=== PATIENT | female | born 1945 | race Caucasian/White ===

== ENCOUNTER 2018-06-06 21:43 | Emergency (ER) | payer MEDICARE, OTHER ==
--- NOTE | 2018-06-06 21:53 | UC ---
UC General HPI - HPI Summary HPI Summary: This patient is a 73 year old F presenting to [facility] with a chief complaint of foreign body stuck in her L ear since [employer]. The patient reports that part of her hearing aid was broken off accidentally in her ear while she was trying to take it out. The patient rates the pain 0/10 in severity. Symptoms aggravated by nothing. Symptoms alleviated by nothing. Patient denies any pain. - History of Current Complaint Stated Complaint: hearing AID STUCK IN EAR Hx Obtained From: Patient Onset/Duration: Sudden Onset, Lasting Hours, Still Present Current Severity: None Aggravating: nothing Alleviating: nothing - Allergy/Home Medications Allergies/Adverse Reactions: Allergies Allergy/AdvReac Type Severity Reaction Status Date / Time MS Bee Venom [Bee Venom] Allergy Severe Anaphylatic Verified 05/03/14 09:39 Shock bee venom protein (honey bee) Allergy Anaphylatic Verified 06/06/18 21:52 Shock calcitonin Allergy Anaphylatic Verified 06/06/18 21:52 Shock codeine Allergy Dizziness Verified 06/06/18 21:52 erythromycin base Allergy Hallucinati Verified 06/06/18 21:52 ons gluten Allergy GI Upset Verified 06/06/18 21:52 Penicillins Allergy Anaphylatic Verified 06/06/18 21:52 Shock Home Medications: Home Medications Desloratidine (NF) [Clarinex (NF)] 5 mg PO DAILY 06/06/18 [History Confirmed ] Estradiol (NF) 0.5 mg PO DAILY 06/06/18 [History Confirmed 06/06/18] Potassium Chloride [Klor-Con] 40 meq PO DAILY 06/06/18 [History Confirmed ] PMH/Surg Hx/FS Hx/Imm Hx Endocrine History: Hypothyroidism Cardiovascular History: Other - SVT Other Cardiovascular History: SVT - Surgical History Surgical History: Yes Surgery Procedure, Year, and Place: Tonsilectomy. bladder repair. sling and mesh bladder - Family History Known Family History: Positive: Other Family History: osteoporosis, breast CA - Social History Alcohol Use: Rare Alcohol Amount: 1 GLASS ONCE A WEEK Substance Use Type: None Smoking Status (MU): Never Smoked Tobacco Have You Smoked in the Last Year: No Review of Systems Constitutional: Other - denies fever ENT: Other - hearing aid stuck in L ear; denies any pain All Other Systems Reviewed And Are Negative: Yes Physical Exam - Summary Physical Exam Summary: VITAL SIGNS: Reviewed. GENERAL: Patient is a well-developed and nourished FEMALE who is lying comfortable in the stretcher. Patient is not in any acute respiratory distress. HEAD AND FACE: Normocephalic EYES: PERRLA, EOMI x 2. EARS: Foreign body in L ear. Hearing loss. MOUTH: Oropharynx within normal limits. NECK: Supple, trachea is midline, no adenopathy, no JVD, no carotid bruit. CHEST: Symmetric, no tenderness at palpation LUNGS: Clear to auscultation bilaterally. No wheezing or crackles. CVS: Irregular rate and rhythm, S1 and S2 present, no murmurs or gallops appreciated. ABDOMEN: Soft, non-tender. Bowel sounds are normal. No abdominal abnormal pulsations. EXTREMITIES: Full ROM in all major joints, no edema, no cyanosis or clubbing. NEURO: Alert and oriented x 3. No acute neurological deficits. Speech is normal and follows commands. SKIN: Dry and warm Triage Information Reviewed: Yes Vital Signs: Initial Vitals Temp Pulse Resp BP Pulse Ox 97.4 F 64 18 138/81 97 06/06/18 21:56 06/06/18 21:56 06/06/18 21:56 06/06/18 21:56 06/06/18 21:56 Vital Signs Reviewed: Yes Course/Dx - Course Course Of Treatment: Foreign body was removed from the left ear. No complications. Patient will follow-up with primary care physician. - Differential Dx - Multi-Symptom Provider Diagnoses: foreign body removal from L ear Discharge - Sign-Out/Discharge Documenting (check all that apply): Patient Departure All imaging exams completed and their final reports reviewed: No Studies - Discharge Plan Condition: Stable Disposition: HOME Patient Education Materials: Ear Foreign Body (ED) Referrals: Manisha Floyd MD [Primary Care Provider] - Additional Instructions: Return to the or go to the emergency department if symptoms worsen Follow-up with primary care physician in next 2-3 days - Billing Disposition and Condition Condition: STABLE Disposition: Home - Attestation Statements Document Initiated by Scribe: Yes Documenting Scribe: Jean Londono Provider For Whom Scribe is Documenting (Include Credential): Kael Noel MD Scribe Attestation: Jean Bautista, scribed for Kael Noel MD on 06/06/18 at 2202. Scribe Documentation Reviewed: Yes Provider Attestation: The documentation as recorded by the scribe, Jean Londono accurately reflects the service I personally performed and the decisions made by me, Kael Noel MD
[2018-06-06 22:00] VITALS: BP 138/81
== END 2018-06-06 22:03 | disposition home or self-care (01) ==
LOC: UCEAST 21:43
DX: T16.2XXA Foreign body in left ear, initial encounter (principal); X58.XXXA Exposure to other specified factors, initial encounter; Y92.9 Unspecified place or not applicable; Z88.5 Allergy status to narcotic agent; Z88.0 Allergy status to penicillin; Z88.1 Allergy status to other antibiotic agents; Z91.030 Bee allergy status
CPT/HCPCS: 69200; 99211; 99212; G0463

== ENCOUNTER 2018-12-04 10:24 | Emergency (ER) | payer MEDICARE, OTHER ==
[2018-12-04 11:24] VITALS: BP 134/79
--- NOTE | 2018-12-04 11:27 | UC ---
Complaint Female HPI - HPI Summary HPI Summary: 73 yo female presents with urinary burning, frequency, and bladder pressure since early this morning. She tells me that she has had many UTIs in the past and this feels similar. Denies abdominal pain, n/v, or fever. - History Of Current Complaint Chief Complaint: UCGU Stated Complaint: URINARY COMPLAINT Time Seen by Provider: 12/04/18 11:26 Hx Obtained From: Patient Onset/Duration: Sudden Onset Timing: Constant Severity Initially: Moderate Severity Currently: Moderate Pain Intensity: 5 Pain Scale Used: 0-10 Numeric - Allergies/Home Medications Allergies/Adverse Reactions: Allergies Allergy/AdvReac Type Severity Reaction Status Date / Time MS Bee Venom [Bee Venom] Allergy Severe Anaphylatic Verified 12/04/18 11:24 Shock bee venom protein (honey bee) Allergy Anaphylatic Verified 12/04/18 11:24 Shock calcitonin Allergy Anaphylatic Verified 12/04/18 11:24 Shock codeine Allergy Dizziness Verified 12/04/18 11:24 erythromycin base Allergy Hallucinati Verified 12/04/18 11:24 ons gluten Allergy GI Upset Verified 12/04/18 11:24 Penicillins Allergy Anaphylatic Verified 12/04/18 11:24 Shock PMH/Surg Hx/FS Hx/Imm Hx - Additional Past Medical History Additional PMH: Seasonal Allergies Endocrine History: Hypothyroidism Cardiovascular History: Cardiac Disease, Hypertension - Surgical History Surgical History: Yes Surgery Procedure, Year, and Place: Tonsilectomy. bladder repair x5. sling and mesh bladder. hysterectomy - Family History Known Family History: Positive: Other Negative: Cardiac Disease, Hypertension, Diabetes Family History: osteoporosis, breast CA - Social History Occupation: Retired Lives: With Family Alcohol Use: Rare Alcohol Amount: 1 GLASS ONCE A WEEK Substance Use Type: None Smoking Status (MU): Never Smoked Tobacco Have You Smoked in the Last Year: No Review of Systems All Other Systems Reviewed And Are Negative: Yes Constitutional: Positive: Negative Skin: Positive: Negative Respiratory: Positive: Negative Cardiovascular: Positive: Negative Genitourinary: Positive: Dysuria Neurological: Positive: Negative Psychological: Positive: Negative Physical Exam - Summary Physical Exam Summary: GENERAL: NAD. WDWN. No pain distress. SKIN: No rashes, sores, lesions, or open wounds. NECK: Supple. Nontender. No lymphadenopathy. CHEST: CTAB. No r/r/w. No accessory muscle use. Breathing comfortably and in no distress. CV: RRR. Without m/r/g. Pulses intact. Cap refill <2seconds ABDOMEN: Soft. NTTP. No distention or guarding. No CVA tenderness. Bowel sounds present NEURO: Alert. PSYCH: Age appropriate behavior. Triage Information Reviewed: Yes Vital Signs: Initial Vital Signs Temp 98.8 F 12/04/18 11:21 Pulse 74 12/04/18 11:21 Resp 16 12/04/18 11:21 BP 134/79 12/04/18 11:21 Pulse Ox 99 12/04/18 11:21 Laboratory Tests 12/04/18 11:38 POC Urine Color Light yellow POC Urine Clarity Clear POC Urine pH 7.0 POC Ur Specif [place] 1.010 POC Urine Protein Trace A POC Ur Glucose (UA) Negative POC Urine Ketones Negative POC Urine Blood 3+ A POC Urine Nitrite Negative POC Urine Bilirubin Negative POC Urine Urobilinogen 0.2 POC U Leukocyte Esteras 1+ A Vital Signs Reviewed: Yes Complaint Female Dx - Course Course Of Treatment: UA with signs of infection. Will treat with macrobid and send her urine for culture - Differential Dx/Diagnosis Provider Diagnosis: UTI (urinary tract infection) Discharge - Sign-Out/Discharge Documenting (check all that apply): Patient Departure All imaging exams completed and their final reports reviewed: No Studies - Discharge Plan Condition: Stable Disposition: HOME Prescriptions: Nitrofurantoin Monohyd/M-Cryst [Macrobid 100 mg Capsule] 100 mg PO BID #10 cap Phenazopyridine 200 mg (NF) [Pyridium 200 MG tab *] 200 mg PO TID #6 tab Patient Education Materials: Urinary Tract Infection in Women (DC) Referrals: Manisha Floyd MD [Primary Care Provider] - Additional Instructions: If you develop a fever, shortness of breath, chest pain, new or worsening symptoms - please call your PCP or go to the ED. - Billing Disposition and Condition Condition: STABLE Disposition: Home
== END 2018-12-04 11:57 | disposition home or self-care (01) ==
LOC: UCEAST 10:24
DX: N39.0 Urinary tract infection, site not specified (principal); E03.9 Hypothyroidism, unspecified; I11.9 Hypertensive heart disease without heart failure; Z87.440 Personal history of urinary (tract) infections; Z88.5 Allergy status to narcotic agent; Z88.0 Allergy status to penicillin; Z88.1 Allergy status to other antibiotic agents; Z91.030 Bee allergy status
CPT/HCPCS: 81003; 87086; 99212; G0463

== ENCOUNTER 2019-01-07 10:47 | Emergency (ER) | payer MEDICARE, OTHER ==
[2019-01-07 11:22] LABS: ABS Eosinophils 0.2 10^3/ul (0-0.6); ABS Monocytes 0.5 10^3/ul (0-0.8); ABS Neutrophils 3.3 10^3/ul (1.5-7.7); Eosinophil % 3.1 %; Hematocrit 46 % (35-47); Hemoglobin 15.5 g/dL (12.0-16.0); Lymphocyte % 20.8 %; Mean Corpuscular HGB Conc 34 g/dL (31-36); Mean Corpuscular Hemoglobin 33 pg (27-31); Mean Corpuscular Volume 97 fL (80-97); Mean Platelet Volume 9.1 fL (7.4-10.4); Platelet Count 237 10^3/uL (150-450); Red Blood Count 4.72 10^6 /uL (3.70-4.87); Red Cell Distribution Width 13 % (10.5-15)
[2019-01-07 11:39] LABS: Albumin 4.4 g/dL (3.2-5.2); Albumin/Globulin Ratio 1.4 (1-3); BUN/Creatinine Ratio 24.6 (8-20); Calcium 9.8 mg/dL (8.6-10.3); EGFR African American 107.8 (>60); EGFR Non-African American 89.1 (>60); Globulin 3.2 g/dL (2-4); Potassium 4.9 mmol/L (3.5-5.0); Total Bilirubin 1.3 mg/dL (0.2-1.0); Total Protein 7.6 g/dL (6.4-8.9)
--- NOTE | 2019-01-07 12:01 | ED ---
HPI Chest Pain - HPI Summary HPI Summary: The patient is a 73 y/o F presenting to [facility] accompanied by with a chief complaint of sudden onset dull aching left anterior chest pain starting yesterday at 0800. She reports that she was recently switched from the bran- name Cardizem to the generic form, and now she has been experiencing CP and heart palpitations. Throughout the night, the pain has become more constant. She did not take the medication this morning. She denies nausea, vomiting, SOB, diaphoresis, and edema. No hx of MT but has hx of PSVTs, which is why she is on the Cardizem. - History of Current Complaint Chief Complaint: EDChestPainROMI Time Seen by Provider: 01/07/19 11:36 Hx Obtained From: Patient Pain Intensity: 2 - Allergy/Home Medications Allergies/Adverse Reactions: Allergies Allergy/AdvReac Type Severity Reaction Status Date / Time bee venom protein (honey bee) Allergy Anaphylatic Verified 01/07/19 10:53 Shock calcitonin Allergy Anaphylatic Verified 01/07/19 10:53 Shock codeine Allergy Dizziness Verified 01/07/19 10:53 erythromycin base Allergy Hallucinati Verified 01/07/19 10:53 ons gluten Allergy GI Upset Verified 01/07/19 10:53 Penicillins Allergy Anaphylatic Verified 01/07/19 10:53 Shock Home Medications: Home Medications Atorvastatin* [Lipitor*] 5 mg PO DAILY 01/07/19 [History Confirmed 01/07/19] EPINEPHrine [Epipen 2-Esdras] 0.3 mg IM DAILY PRN 01/07/19 [History Confirmed 01/07] Multivitamins/Minerals TAB* [Theragran/minerals TAB*] 1 tab PO DAILY 01/07/19 [ History Confirmed 01/07/19] PMH/Surg Hx/FS Hx/Imm Hx Endocrine/Hematology History: Reports: Hx Thyroid Disease Denies: Hx Diabetes Cardiovascular History: Denies: Hx Hypertension Respiratory History: Denies: Hx Asthma, Hx Chronic Obstructive Pulmonary Disease (COPD) GI History: Denies: Hx Ulcer Musculoskeletal History: Reports: Hx Osteoporosis Denies: Hx Rheumatoid Arthritis - Cancer History Hx Chemotherapy: No Hx Radiation Therapy: No - Surgical History Surgery Procedure, Year, and Place: Tonsilectomy. bladder repair x5. sling and mesh bladder. hysterectomy Infectious Disease History: No Infectious Disease History: Denies: Hx Hepatitis, Hx Human Immunodeficiency Virus (HIV), Traveled Outside the [place] in Last 30 Days - Family History Known Family History: Positive: Other Negative: Cardiac Disease, Hypertension, Diabetes Family History: osteoporosis, breast CA - Social History Alcohol Use: Rare Alcohol Amount: 1 GLASS ONCE A WEEK Hx Substance Use: No Substance Use Type: Reports: None Hx Tobacco Use: No Smoking Status (MU): Never Smoked Tobacco Do You Chew or Dip Tobacco: No Have You Chewed or Dipped Tobacco in the LAST YEAR: No Have You Smoked in the Last Year: No Review of Systems Negative: Skin Diaphoresis Positive: Chest Pain - left anterior dull ache Negative: Shortness Of Breath Negative: Vomiting, Nausea Negative: Edema All Other Systems Reviewed And Are Negative: Yes Physical Exam - Summary Physical Exam Summary: VITAL SIGNS: Reviewed. GENERAL: Patient is a well-developed and nourished female who is lying comfortable in the stretcher. Patient is not in any acute respiratory distress. HEAD AND FACE: No signs of trauma. No ecchymosis, hematomas or skull depressions. No sinus tenderness. EYES: PERRLA, EOMI x 2, No injected conjunctiva, no nystagmus. EARS: Hearing grossly intact. Ear canals and tympanic membranes are within normal limits. MOUTH: Oropharynx within normal limits. NECK: Supple, trachea is midline, no adenopathy, no JVD, no carotid bruit, no c- spine tenderness, neck with full ROM. CHEST: Symmetric, no tenderness at palpation LUNGS: Clear to auscultation bilaterally. No wheezing or crackles. CVS: Regular rate and rhythm, S1 and S2 present, no murmurs or gallops appreciated. ABDOMEN: Soft, non-tender. No signs of distention. No rebound no guarding, and no masses palpated. Bowel sounds are normal. EXTREMITIES: FROM in all major joints, no edema, no cyanosis or clubbing. NEURO: Alert and oriented x 3. No acute neurological deficits. Speech is normal and follows commands. SKIN: Dry and warm. Triage Information Reviewed: Yes Vital Signs On Initial Exam: Initial Vitals Pulse Resp BP Pulse Ox 94 18 144/96 97 01/07/19 10:18 01/07/19 10:18 01/07/19 10:18 01/07/19 10:18 Vital Signs Reviewed: Yes Diagnostics - Vital Signs Vital Signs Temp Pulse Resp BP Pulse Ox 05/22/19 11:45 95 01/07/19 11:19 93 27 97 01/07/19 10:50 97.9 F 99 17 150/97 97 01/07/19 10:18 94 18 144/96 97 - Laboratory Lab Results: Lab Results 01/07/19 01/07/19 01/07/19 Range/Units 11:10 11:10 11:10 WBC 5.0 (3.5-10.8) 10^3/uL RBC 4.72 (3.70-4.87) 10^6 /uL Hgb 15.5 (12.0-16.0) g/dL Hct 46 (35-47) % MCV 97 (80-97) fL MCH 33 H (27-31) pg MCHC 34 (31-36) g/dL RDW 13 (10.5-15) % Plt Count 237 (150-450) 10^3/uL MPV 9.1 (7.4-10.4) fL Neut % (Auto) 65.2 % Lymph % (Auto) 20.8 % [place] % (Auto) 10.0 % Eos % (Auto) 3.1 % Baso % (Auto) 0.9 % Absolute Neuts (auto) 3.3 (1.5-7.7) 10^3/ul Absolute Lymphs (auto) 1.0 (1.0-4.8) 10^3/ul Absolute Monos (auto) 0.5 (0-0.8) 10^3/ul Absolute Eos (auto) 0.2 (0-0.6) 10^3/ul Absolute Basos (auto) 0.0 (0-0.2) 10^3/ul Absolute Nucleated RBC 0.0 10^3/ul Nucleated RBC % 0.0 Sodium 139 (135-145) mmol/L Potassium 4.9 (3.5-5.0) mmol/L Chloride 107 (101-111) mmol/L Carbon Dioxide 27 (22-32) mmol/L Anion Gap 5 (2-11) mmol/L BUN 16 (6-24) mg/dL Creatinine 0.65 (0.51-0.95) mg/dL Est GFR ( Amer) 107.8 (>60) Est GFR (Non-Af Amer) 89.1 (>60) BUN/Creatinine Ratio 24.6 H (8-20) Glucose 108 H (70-100) mg/dL Lactic Acid 1.2 (0.5-2.0) mmol/L Calcium 9.8 (8.6-10.3) mg/dL Total Bilirubin 1.30 H (0.2-1.0) mg/dL AST 25 (13-39) U/L ALT 21 (7-52) U/L Alkaline Phosphatase 82 (34-104) U/L Troponin I 0.00 (<0.04) ng/mL Total Protein 7.6 (6.4-8.9) g/dL Albumin 4.4 (3.2-5.2) g/dL Globulin 3.2 (2-4) g/dL Albumin/Globulin Ratio 1.4 (1-3) Result Diagrams: 01/07/19 11:10 01/07/19 11:10 Lab Statement: Any lab studies that have been ordered have been reviewed, and results considered in the medical decision making process. - Radiology CXR Radiology Interpretation Completed By: Radiologist Summary of Radiographic Findings: No active cardiopulmonary disease is noted. ED physician has reviewed this report. - EKG 1056 Cardiac Rate: NL - 94 BPM EKG Rhythm: Sinus Rhythm EKG Comparison: No Significant Change - Similar to EKG taken on 07/03/07 Summary of EKG Findings: ST depression in the 2-3 with T-wave inversion in V2, V3, V4, and V5 Re-Evaluation - Re-Evaluation First Eval Re-Evaluation Time: 13:10 Change: Improved Comment: I spoke with the patient concerning Dr. Cabral's recommendation and discharge home. Chest Pain Course/Dx - Course Assessment/Plan: The patient is a 73 y/o F presenting to [facility] accompanied by with a chief complaint of sudden onset dull aching left anterior chest pain starting yesterday at 0800. She reports that she was recently switched from the bran-name Cardizem to the generic form, and now she has been experiencing CP and heart palpitations. Throughout the night, the pain has become more constant. She did not take the medication this morning. She denies nausea, vomiting, SOB, diaphoresis, and edema. No hx of MT but has hx of PSVTs, which is why she is on the Cardizem. At arrival to the ED and the patient is asymptomatic. Patient reports that the pounding has resolved. EKG shows a sinus rhythm at [address] elevation. However there is a ST depression in the 2-3 with T-wave inversion in V2, V3, V4, and V5. This EKG is similar to previous EKG done on 07/03/07. Blood work without any significant abnormality except for glucose of 108, total bili is 1.3, and troponin 0.00. Chest x-ray impression: Negative for acute pathology. I discussed case with Dr. Cabral from cardiology and he doesnt recommend a second troponin. What he recommends is to stop taking the generic Cardizem anesthetic for the bradycardia symptoms which she has been taking for years. He called the pharmacy and they with give the patient the brand Cardizem. I discussed all the findings and test results with the patient. Patient was instructed to return to the emergency room immediately if any of the symptoms return worsens. Plan of care was discussed with the patient and understands and agrees. All questions were answered at patient satisfaction. There were no further complaints or concerns. Lung exam before discharge: CTA B/L. Good air exchange. No wheezing or crackles heard. CVS: S1 and S2 present. No murmurs appreciated. Patient is alert and oriented x 3. Patient is hemodynamically stable. Patient will be discharged home with follow up PCP in the next 2-3 days. 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 Cabral who recommends that the patient stop the generic Cardizem and wait for repeat troponin. Discharge - Sign-Out/Discharge Documenting (check all that apply): Patient Departure - Patient will be dsicharged home. Patient Received Moderate/Deep Sedation with Procedure: No - Discharge Plan Condition: Stable Disposition: HOME Patient Education Materials: Heart Palpitations (DC) Referrals: Manisha Floyd MD [Primary Care Provider] - 3 Days Additional Instructions: FOLLOW UP WITH YOUR PRIMARY CARE PROVIDER WITHIN ONE WEEK FOR HIGH BLOOD PRESSURE NOTED TODAY. RETURN TO THE ED FOR ANY WORSENING OR NEW SYMPTOMS. - Billing Disposition and Condition Condition: STABLE Disposition: Home - Attestation Statements Document Initiated by Jilibjames: Yes Documenting Scribe: Cass Ross Provider For Whom Forrest is Documenting (Include Credential): Dr. Kael Noel MD Scribe Attestation: Cass Bautista, scribed for Dr. Kael Noel MD on 01/08/19 at 2125. Scribe Documentation Reviewed: Yes Provider Attestation: The documentation as recorded by the Cass herrmann accurately reflects the service I personally performed and the decisions made by me, Dr. Kael Noel MD Status of Scribe Document: Viewed
[2019-01-07] MEDS ORDERED: Diltiazem CD CAP* 120 MG PO ONE (12:32)
[2019-01-07 13:45] VITALS: BP 138/87
== END 2019-01-07 13:43 | disposition home or self-care (01) ==
LOC: ED 10:47
DX: R00.2 Palpitations (principal); M81.0 Age-related osteoporosis without current pathological fracture; E07.9 Disorder of thyroid, unspecified; Z88.0 Allergy status to penicillin; Z88.5 Allergy status to narcotic agent
CPT/HCPCS: 36415; 71045; 80053; 83605; 84484; 85025; 93005; 99283; A9270-GY